=== PATIENT | female | born 1970 | race Caucasian/White ===

== ENCOUNTER → 2017-01-04 | Outpatient (CLI) | payer OTHER ==
[~2017-01-04] MED LIST: ADDERALL10 MG PO; AMBIEN10 MG PO; AMPYRA10 MG PO; CRANBERRY400 M1 PO; FISH OIL1000 MG PO; KEFLEX250 MG PO; LIORESAL10 MG PO; MELATONIN3 MG PO; MULTI FOR HER1 EACH PO; VITAMIN D1000 UNIT PO; WELLBUTRIN SR200 MG PO
== END | disposition disaster alternative care site (69) ==
LOC: GRAD 15:34
DX: G35 Multiple sclerosis (principal)
CPT/HCPCS: A9577